=== PATIENT | female | born 1990 | race Hispanic/Latino ===

== ENCOUNTER 2017-09-15 20:24 | Emergency (ER) | payer BC | END 2017-09-15 21:51 | disposition left against medical advice (07) | LOC: ED 20:24 | DX: R05 Cough (principal); Z53.21 Procedure and treatment not carried out due to patient leaving prior to being seen by health care provider ==

== ENCOUNTER 2018-11-23 15:45 | Emergency (ER) | payer BC ==
--- NOTE | 2018-11-23 16:09 | Emergency Department Report ---
Blank Doc - Documentation Documentation: This is a 28-year-old female that presents with left flank pain. Stated also has some heart racing fact sensation. Denies any other complaints or symptoms. This initial assessment/diagnostic orders/clinical plan/treatment(s) is/are subject to change based on patient's health status, clinical progression and re- assessment by fellow clinical providers in the ED. Further treatment and workup at subsequent clinical providers discretion. Patient/guardians urged not to elope from the ED as their condition may be serious if not clinically assessed and managed. Initial orders include: 1- Patient sent to [facility] for further evaluation and treatment 2- labs 3- UA
[2018-11-23 16:51] LABS: Basophils # (Auto) 0.1 K/mm3 (0.0-0.1); Eosinophils # (Auto) 0.3 K/mm3 (0.0-0.4); Eosinophils % (Auto) 5.4 % (0.0-4.3); Hematocrit 39.5 % (30.3-42.9); Hemoglobin 13.7 gm/dl (10.1-14.3); Lymphocytes # (Auto) 1.5 K/mm3 (1.2-5.4); Lymphocytes % (Auto) 25.5 % (13.4-35.0); Mean Corpuscular HGB Conc 35 % (30-34); Mean Corpuscular Volume 88 fl (79-97); Monocytes # (Auto) 0.4 K/mm3 (0.0-0.8); Monocytes % (Auto) 6.9 % (0.0-7.3); Platelet Count 281 K/mm3 (140-440); Red Blood Count 4.47 M/mm3 (3.65-5.03); Red Cell Distribution Width 12.7 % (13.2-15.2)
[2018-11-23 17:15] LABS: BUN/Creatinine Ratio 23; Blood Urea Nitrogen 16 mg/dL (7-17); Calcium 9.4 mg/dL (8.4-10.2); Hemolysis Index 3
[2018-11-23 18:10] LABS: Bilirubin,Urine NEG (Negative); Blood,Urine MOD (Negative); Color,Urine Colorless (Yellow); Protein,Urine <15 mg/dL mg/dL (Negative); Urobilinogen,Urine < 2.0 mg/dL (<2.0); WBC,Urine < 1.0 /HPF (0.0-6.0)
[2018-11-23 18:17] LABS: HCG Qualitative,Urine Negative (Negative)
[2018-11-23] MEDS ORDERED: MORPHINE IV ONE (19:50)
[2018-11-23] MEDS ORDERED: ZOFRAN IV ONE (19:50)
[2018-11-23] MEDS ORDERED: NACL 0.9% 1000 ML 1,000 ML IV ONE (19:50)
[2018-11-23 20:04] VITALS: BP 119/71
--- NOTE | 2018-11-23 22:06 | Cat Scan Report ---
PROCEDURE: CT ABDOMEN PELVIS WO CON TECHNIQUE: Computerized axial tomography of the abdomen and pelvis was performed without intravenous contrast. This study is performed without intravascular contrast material and its sensitivity for ab dominal and pelvic pathology, including neoplasms, inflammation, abscess, free fluid, thrombosis, art erial dissection and infarction, is reduced compared with a contrast enhanced study. CT DOSE LENGTH PRODUCT: 453.3 mGycm HISTORY: flank pain COMPARISONS: None . FINDINGS: Visualized lower thorax: No significant abnormality. Liver: Normal size and attenuation. Spleen: Normal size and attenuation. Gallbladder and biliary system: Normal. Pancreas: Normal. Adrenals: Normal. Kidneys: Dense bilateral renal pyramids. No focal renal calculus or hydronephrosis. No ureteral calcu li are seen. GI tract: There is moderate volume of stool throughout the colon. The appendix measures 4 mm in tatiana yordy, with no adjacent inflammation. No bowel obstruction or inflammation is seen . Lymph nodes and mesentery: Normal. Vasculature: Normal.. Bladder: Normal. Reproductive organs: Grossly unremarkable. Peritoneum: There is a small amount of free fluid in the pelvis. Musculoskeletal structures: No significant abnormality. Other: None. IMPRESSION: No hydronephrosis or urolithiasis. Moderate volume of stool seen throughout the colon. Correlate for possible constipation. This document is electronically signed by Layne Granda MD., November 23 2018 10:04:44 PM ET
--- NOTE | 2018-11-23 22:17 | Emergency Department Report ---
ED Abdominal Pain HPI - General Chief Complaint: Arrhythmia/Palpitations Stated Complaint: HEART RACING/RIB CAGE PAIN Time Seen by Provider: 11/23/18 16:08 Source: patient Mode of arrival: Ambulatory Limitations: No Limitations - History of Present Illness Initial Comments: This is a 28-year-old female nontoxic, well nourished in appearance, no acute si gns of distress presents to the ED with c/o of left flank pain. Patient stated that pain causes her heart to race. Patient denies any nausea or vomiting. Patient describes flank pain as cramping and aching with level of 3/10. Denies any urinary symptoms. Patient denies chest pain, short of breath, fever, chills, headache, stiff neck, numbness or tingling. Patient denies any diarrhea or constipation. Patient denies any recent travels. Patient denies any allergies or significant PMH. MD Complaint: flank pain -: This morning Location: L flank Radiation: none Migration to: no migration Severity: mild Severity scale (0 -10): 3 Quality: cramping, aching Consistency: now resolved Improves With: nothing Worsens With: nothing Associated Symptoms: denies: nausea, vomiting, diarrhea, fever, chills, constipation, dysuria, hematemesis, hematochezia, melena, hematuria, anorexia, syncope - Related Data Previous Rx's Medication Instructions Recorded Last Taken Type Oxycodone HCl/Acetaminophen 1 each PO Q6HR PRN #14 tablet 06/09/17 Unknown Rx [Percocet 7.5/325 mg] levoFLOXacin [Levaquin] 750 mg PO QDAY #7 tablet 06/09/17 Unknown Rx Acetaminophen/Codeine [Tylenol 1 tab PO Q6H PRN #12 tab 11/23/18 Unknown Rx /Codeine # 3 tab] Docusate Sodium [Colace] 100 mg PO DAILY PRN #30 capsule 11/23/18 Unknown Rx Ondansetron [Zofran Odt] 4 mg PO Q8HR PRN #20 tab.rapdis 11/23/18 Unknown Rx Allergies Allergy/AdvReac Type Severity Reaction Status Date / Time No Known Allergies Allergy Verified 07/06/15 07:53 ED Review of Systems ROS: Stated complaint: HEART RACING/RIB CAGE PAIN Other details as noted in HPI Constitutional: denies: chills, fever Eyes: denies: eye pain, eye discharge, vision change ENT: denies: ear pain, throat pain Respiratory: denies: cough, shortness of breath, wheezing Cardiovascular: denies: chest pain, palpitations Endocrine: no symptoms reported Gastrointestinal: other (left flank pain). denies: abdominal pain, nausea, vomiting, diarrhea Genitourinary: denies: urgency, dysuria, discharge Musculoskeletal: denies: back pain, joint swelling, arthralgia Skin: denies: rash, lesions Neurological: denies: headache, weakness, paresthesias Psychiatric: denies: anxiety, depression Hematological/Lymphatic: denies: easy bleeding, easy bruising ED Past Medical Hx - Past Medical History Hx Congestive Heart Failure: No Hx Diabetes: No Hx Renal Disease: Yes (UTI'S) Hx Headaches / Migraines: Yes Hx Seizures: Yes (on seizure med s/p brain tumor congenital.) Hx Psychiatric Treatment: Yes (DEPRESSION) Hx Asthma: No Hx COPD: No Additional medical history: 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 - Surgical History Additional Surgical History: 13 facial and left ear surgeries childhood to remove lesions and barron. - Social History Smoking Status: Never Smoker Substance Use Type: None - Medications Home Medications: Home Medications Medication Instructions Recorded Confirmed Last Taken Type Oxycodone HCl/Acetaminophen 1 each PO Q6HR PRN #14 tablet 06/09/17 Unknown Rx [Percocet 7.5/325 mg] levoFLOXacin [Levaquin] 750 mg PO QDAY #7 tablet 06/09/17 Unknown Rx Acetaminophen/Codeine [Tylenol 1 tab PO Q6H PRN #12 tab 11/23/18 Unknown Rx /Codeine # 3 tab] Docusate Sodium [Colace] 100 mg PO DAILY PRN #30 capsule 11/23/18 Unknown Rx Ondansetron [Zofran Odt] 4 mg PO Q8HR PRN #20 tab.rapdis 11/23/18 Unknown Rx ED Physical Exam - General Limitations: No Limitations General appearance: alert, in no apparent distress - Head Head exam: Present: atraumatic, normocephalic - Eye Eye exam: Present: normal appearance - Neck Neck exam: Present: normal inspection, full ROM. Absent: tenderness, meningismus, lymphadenopathy - Respiratory Respiratory exam: Present: normal lung sounds bilaterally. Absent: respiratory distress, wheezes, rales, rhonchi, stridor, chest wall tenderness, accessory muscle use, decreased breath sounds, prolonged expiratory - Cardiovascular Cardiovascular Exam: Present: regular rate, normal rhythm, normal heart sounds. Absent: irregular rhythm, systolic murmur, diastolic murmur, rubs, gallop - GI/Abdominal GI/Abdominal exam: Present: soft, normal bowel sounds. Absent: distended, tenderness, guarding, rebound, rigid, diminished bowel sounds - Extremities Exam Extremities exam: Present: normal inspection, full ROM - Back Exam Back exam: Present: normal inspection, full ROM. Absent: tenderness, CVA tenderness (R), CVA tenderness (L), muscle spasm, paraspinal tenderness, vertebral tenderness, rash noted - Neurological Exam Neurological exam: Present: alert, oriented X3 - Psychiatric Psychiatric exam: Present: normal affect, normal mood - Skin Skin exam: Present: warm, dry, intact, normal color. Absent: rash ED Course Vital Signs 11/23/18 11/23/18 16:14 20:03 Temperature 98.8 F 98.5 F Pulse Rate 92 H 72 Respiratory 16 17 Rate Blood Pressure 127/83 Blood Pressure 119/71 [Left] O2 Sat by Pulse 99 99 Oximetry - Reevaluation(s) Reevaluation #1: 11/23/18 22:19 Patient is speaking in full sentences with no signs of distress noted. ED Medical Decision Making - Lab Data Result diagrams: 11/23/18 16:24 11/23/18 16:24 - Medical Decision Making This is a 28-year-old female that presents with constipation and left flank pain. Patient is stable and was examined by me. There is no abdominal tenderness. Negative signs of symptoms of appendicitis. EKG normal sinus rhythm. Labs obtained. UA obtained with some RBCs. CT without of abdomen obtained and dictated by the radiologist. Symptoms shows that she may have passed a urinary stone. Patient is notified of the report with no questions noted by the patient. Vital signs are stable prior to discharge. Patient received medical treatment in the ED which patient stated symptoms has resolved and subsided. Patient stated family member will drive the patient home after discharge due to possible drowsiness. A by mouth challenge has been obtained and patient tolerated well with no nausea vomiting. Patient was notified of strict precautions of appendicitis symptoms and to return to the ED if symptoms occurs as soon as possible. Patient was also instructed to Follow-up with a primary care doctor in 3-5 days or if symptoms worsen and continue return to emergency room as soon as possible. At time of discharge, the patient does not seem toxic or ill in appearance. No acute signs of distress noted. Patient agrees to discharge treatment plan of care. No further questions noted by the patient. Critical care attestation.: If time is entered above; I have spent that time in minutes in the direct care of this critically ill patient, excluding procedure time. ED Disposition Clinical Impression: Left flank pain Constipation Qualifiers: Constipation type: unspecified constipation type Qualified Code(s): K59.00 - Constipation, unspecified Disposition: - TO HOME OR SELFCARE Is pt being admited?: No Does the pt Need Aspirin: No Condition: Stable Instructions: Constipation (ED), High Fiber Diet (ED) Additional Instructions: Follow-up with a primary care doctor in 3-5 days or if symptoms worsen and continue return to emergency room as soon as possible. Do not operate any machinery while taking Tylenol with codeine as this may cause drowsiness. Prescriptions: Docusate Sodium [Colace] 100 mg PO DAILY PRN #30 capsule PRN Reason: Constipation Acetaminophen/Codeine [Tylenol /Codeine # 3 tab] 1 tab PO Q6H PRN #12 tab PRN Reason: Pain , Severe (7-10) Ondansetron [Zofran Odt] 4 mg PO Q8HR PRN #20 tab.rapdis PRN Reason: Nausea Referrals: [facility] MD DARLINE [Primary Care Provider] - 3-5 Days PRIMARY MD SUZANNE [Referring] - 3-5 Days DIANA NGO MD [Staff Physician] - 3-5 Days [facility] [Outside] - 3-5 Days [facility] [Outside] - 3-5 Days Forms: Work/School Release Form(ED)
== END 2018-11-23 22:44 | disposition home or self-care (01) ==
LOC: ED 15:45
DX: K59.00 Constipation, unspecified (principal); G43.909 Migraine, unspecified, not intractable, without status migrainosus
CPT/HCPCS: 36415; 74176; 80048; 81001; 81025; 85025; 93005; 93010; 96374; 96375; 99284; J2270; J2405; J7030